=== PATIENT | male | born 1940 | race Caucasian/White ===

== ENCOUNTER → 2016-10-27 | Outpatient (CLI) | payer MEDICARE, OTHER ==
[~2016-10-27] MED LIST: HYDR-3583 PO
== END ==
LOC: FS 10:10
PROVIDERS: ATTEND Internal Medicine Hematology & Oncology
DX: Z08 Encounter for follow-up examination after completed treatment for malignant neoplasm (principal); Z85.048 Personal history of other malignant neoplasm of rectum, rectosigmoid junction, and anus; Z93.3 Colostomy status; Z92.21 Personal history of antineoplastic chemotherapy; Z92.3 Personal history of irradiation
CPT/HCPCS: 99213

== ENCOUNTER → 2017-10-26 | Outpatient (CLI) | payer MEDICARE, OTHER | LOC: EDSTATUS 03-04 07:40 → ONC 09:41 | PROVIDERS: ATTEND Internal Medicine Hematology & Oncology | DX: Z08 Encounter for follow-up examination after completed treatment for malignant neoplasm (principal); Z85.048 Personal history of other malignant neoplasm of rectum, rectosigmoid junction, and anus; F32.9 Major depressive disorder, single episode, unspecified; Z93.3 Colostomy status; Z92.21 Personal history of antineoplastic chemotherapy; Z92.3 Personal history of irradiation; Z79.899 Other long term (current) drug therapy | CPT/HCPCS: 99213 ==

== ENCOUNTER → 2020-02-01 | Outpatient (CLI) | payer MEDICARE, OTHER ==
[~2020-02-01] MED LIST changes: +HYDR-4227 PO
--- NOTE | 2020-02-01 10:31 | Diagnostic Imaging Report ---
INDICATION: Injury to left elbow AP, oblique, and lateral views of the left elbow are obtained. Comparison made to 01/30/2020. 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 There are multiple calcifications in the joint space compatible with loose bodies. No definite acute fracture is seen. There is osteopenia. 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 There are multiple calcifications in the joint space compatible with loose bodies as well as a joint effusion. No definite fracture visualized. Dictated by: Dictated on workstation # [id number]
== END ==
LOC: RAD FS 09:51
PROVIDERS: ATTEND Family Medicine
DX: S59.902A Unspecified injury of left elbow, initial encounter (principal); M19.022 Primary osteoarthritis, left elbow; M25.822 Other specified joint disorders, left elbow; M25.422 Effusion, left elbow; X58.XXXA Exposure to other specified factors, initial encounter
CPT/HCPCS: 73080